=== PATIENT | male | born 1945 | race Two or more races ===

== ENCOUNTER 2020-11-02 07:23 | Emergency (ER) | payer OTHER ==
[~2020-11-02] VITALS: Ht 172.7 cm; Wt 90.7 kg
[2020-11-02] MEDS ORDERED: SODIUM CHLORIDE 0.9% 500 ML IV ONE (08:15)
[2020-11-02 08:34] LABS: Urine Bacteria NONE SEEN /hpf (None Seen); Urine Blood TRACE /uL (Negative); Urine Mucus FEW (None Seen); Urine Specific Gravity 1.019 (1.001-1.035); Urine WBC 250 /hpf (0 - 3); Urine WBC Clumps PRESENT /hpf (None Seen)
[2020-11-02 08:40] LABS: Basophils # (auto) 0.1 10 ^3/uL (0-0.2); Basophils % (auto) 0.3 % (0.0-2.0); Eosinophils # (auto) 0 10 ^3/uL (0-0.8); Hematocrit 43.1 % (41.0-53.0); Hemoglobin 14.8 g/dL (13.5-17.5); Lymphocytes # (auto) 1.3 10 ^3/uL (0.4-5.4); Lymphocytes % (auto) 8.1 % (10.0-50.0); Mean Corpuscular Hemoglobin 30.4 pg (28.0-32.0); Mean Corpuscular Hgb Conc. 34.3 g/dL (32.0-36.0); Mean Corpuscular Volume 88.5 fL (80.0-100.0); Monocytes % (auto) 6.5 % (0.0-12.0); Neutrophils # (auto) 13.2 10 ^3/uL (1.6-8.6); Neutrophils % (auto) 85.1 % (37.0-80.0); Red Blood Cells 4.87 10^6/uL (4.5-5.90); Red Cell Distribution Width 14.7 % (11.8-14.3); White Blood Cell 15.5 10^3/uL (4.4-10.8)
[2020-11-02] MEDS ORDERED: cefTRIAXone 1GM/50ML D5W 50 ML IV ONE (09:00)
[2020-11-02 09:01] LABS: Albumin 3.7 g/dL (3.4-5.0); Calcium 8.3 mg/dL (8.5-10.1); Potassium 3.4 mmol/L (3.5-5.1)
[2020-11-02 09:07] LABS: BUN/Creatinine Ratio 12.7; Bilirubin, Total 2.2 mg/dL (0.2-1.0); Total Protein 7.9 g/dL (6.4-8.2)
[2020-11-02] MEDS ORDERED: KETOROLAC TROMETH 30 MG/ML 1ML VIAL IV ONE (09:30)
[2020-11-02 09:33] VITALS: BP 116/74
== END 2020-11-02 09:59 | disposition home or self-care (01) ==
LOC: ER 07:23
DX: N39.0 Urinary tract infection, site not specified (principal); N20.0 Calculus of kidney
CPT/HCPCS: 36415; 74176; 80053; 81001; 85025; 87086; 96365; 96375; 99284; J0696; J1885; J7030

== ENCOUNTER 2021-03-31 14:42 | Inpatient (IN) | payer OTHER ==
[~2021-03-31] VITALS: Ht 167.6 cm; Wt 90.0 kg
[2021-03-31 15:59] LABS: Basophils # (auto) 0 10 ^3/uL (0-0.2); Basophils % (auto) 0.4 % (0.0-2.0); Eosinophils # (auto) 0.1 10 ^3/uL (0-0.8); Eosinophils % (auto) 1.1 % (0.0-7.0); Hematocrit 44.5 % (41.0-53.0); Hemoglobin 15.4 g/dL (13.5-17.5); Lymphocytes # (auto) 1.2 10 ^3/uL (0.4-5.4); Lymphocytes % (auto) 19.1 % (10.0-50.0); Mean Corpuscular Hemoglobin 30.4 pg (28.0-32.0); Mean Corpuscular Hgb Conc. 34.7 g/dL (32.0-36.0); Mean Corpuscular Volume 87.7 fL (80.0-100.0); Monocytes # (auto) 0.3 10 ^3/uL (0-1.3); Monocytes % (auto) 4.6 % (0.0-12.0); Neutrophils # (auto) 4.8 10 ^3/uL (1.6-8.6); Neutrophils % (auto) 74.8 % (37.0-80.0); Nucleated Red Blood Cells % 0.2 %; Red Blood Cells 5.07 10^6/uL (4.5-5.90); Red Cell Distribution Width 14.3 % (11.8-14.3); White Blood Cell 6.4 10^3/uL (4.4-10.8)
[2021-03-31 16:24] LABS: Calcium 8.7 mg/dL (8.5-10.1); Potassium 3.9 mmol/L (3.5-5.1)
[2021-03-31 16:28] LABS: BUN/Creatinine Ratio 14.1; Bilirubin, Total 0.8 mg/dL (0.2-1.0)
[2021-03-31] MEDS ORDERED: ASPirin 81 mg TAB PO ONE (18:45)
[2021-03-31] MEDS ORDERED: ASPirin 325 MG TAB PO ONE (18:45)
[2021-03-31] MEDS ORDERED: hydrALAZINE HCL 20 MG/ML VL IV PRN (21:45)
[2021-03-31] MEDS ORDERED: ACETAMINOPHEN 325 MG TAB PO PRN (21:45)
[2021-03-31] MEDS ORDERED: HYDROcodone-ACET 5/325MG TAB PO PRN (21:45)
[2021-03-31] MEDS ORDERED: DEXTROSE (50%) 50ML SYRG IV PRN (21:45)
[2021-03-31] MEDS ORDERED: DOCUSATE SOD 100 MG CAP PO PRN (21:45)
[2021-03-31] MEDS ORDERED: ONDANSETRON HCL 4 MG/2 ML VIAL IV PRN (21:45)
[2021-03-31] MEDS ORDERED: ATORVASTATIN 20 MG TAB PO SCH (22:00)
[2021-03-31] MEDS: InsuLIN REG 1unit/0.01ml Soln (100units/ml) SC SCH (22:30)
[2021-03-31] MEDS: ACCU-CHEK COMFORT CURVE STRIP VI SCH (22:30)
[2021-03-31] MEDS ORDERED: MORPHINE SULFATE INJECTION 2 MG/ML SYRG IV PRN (23:00)
[2021-03-31] MEDS ORDERED: NITROGLYCERIN 0.4 MG SL TAB SL PRN (23:00)
[2021-04-01] VITALS (10 sets, daily range): BP systolic 116–157; BP diastolic 74–103
[2021-04-01] MEDS ORDERED: METOPROLOL TARTRATE 1MG/1ML-5ML VIAL IV ONE ×2 (02:30→02:31)
[2021-04-01] MEDS ORDERED: METOPROLOL TARTRATE 1MG/1ML-5ML VIAL IV PRN (02:30)
[2021-04-01] MEDS ORDERED: LISI40TA11 PO (02:54)
[2021-04-01 05:28] LABS: Basophils # (auto) 0 10 ^3/uL (0-0.2); Basophils % (auto) 0.2 % (0.0-2.0); Eosinophils # (auto) 0 10 ^3/uL (0-0.8); Hematocrit 45.7 % (41.0-53.0); Hemoglobin 15.9 g/dL (13.5-17.5); Lymphocytes # (auto) 0.7 10 ^3/uL (0.4-5.4); Lymphocytes % (auto) 4.9 % (10.0-50.0); Mean Corpuscular Hemoglobin 30.3 pg (28.0-32.0); Mean Corpuscular Hgb Conc. 34.9 g/dL (32.0-36.0); Mean Corpuscular Volume 86.9 fL (80.0-100.0); Monocytes # (auto) 0.4 10 ^3/uL (0-1.3); Monocytes % (auto) 2.6 % (0.0-12.0); Neutrophils # (auto) 13.2 10 ^3/uL (1.6-8.6); Neutrophils % (auto) 92.3 % (37.0-80.0); Red Blood Cells 5.26 10^6/uL (4.5-5.90); Red Cell Distribution Width 14.3 % (11.8-14.3); White Blood Cell 14.3 10^3/uL (4.4-10.8)
[2021-04-01 05:48] LABS: Albumin 4.3 g/dL (3.4-5.0); Potassium 3.7 mmol/L (3.5-5.1)
[2021-04-01 05:52] LABS: BUN/Creatinine Ratio 8.4; Total Protein 8.1 g/dL (6.4-8.2)
[2021-04-01] MEDS: ACCU-CHEK COMFORT CURVE STRIP VI SCH ×4 (05:54→21:57)
[2021-04-01] MEDS: InsuLIN REG 1unit/0.01ml Soln (100units/ml) SC SCH ×4 (06:33→21:52)
[2021-04-01] MEDS ORDERED: hydrALAZINE HCL 20 MG/ML VL IV PRN (09:30)
[2021-04-01] MEDS ORDERED: LABETALOL HCL 5 MG/ML 4ML SYRINGE IV PRN (09:30)
[2021-04-01 09:54] LABS: Cholesterol 170 mg/dL (< 200); HDL Cholesterol 50 mg/dL (40-59); LDL Cholesterol 100 mg/dL (< 100); Triglycerides 76 mg/dL (< 150)
[2021-04-01] MEDS ORDERED: ASPirin 81 mg TAB PO SCH (10:00)
[2021-04-01] MEDS: LISINOPRIL 20 MG TAB PO SCH (10:00)
[2021-04-01] MEDS ORDERED: FAMOTIDINE (10MG/ML) 2ML VL IV SCH (10:00)
[2021-04-01] MEDS: D5W/SOD CHLO 0.9% 1,000 ML IV SCH (10:45)
[2021-04-01] MEDS: ATORVASTATIN 20 MG TAB PO SCH (21:57)
[2021-04-02] VITALS (19 sets, daily range): BP systolic 70–147; BP diastolic 34–98
[2021-04-02 05:45] LABS: Basophils # (auto) 0 10 ^3/uL (0-0.2); Eosinophils # (auto) 0 10 ^3/uL (0-0.8); Hematocrit 47.1 % (41.0-53.0); Hemoglobin 16.1 g/dL (13.5-17.5); Lymphocytes # (auto) 1.1 10 ^3/uL (0.4-5.4); Mean Corpuscular Hgb Conc. 34.2 g/dL (32.0-36.0); Mean Corpuscular Volume 87.6 fL (80.0-100.0); Monocytes # (auto) 0.9 10 ^3/uL (0-1.3); Monocytes % (auto) 5.5 % (0.0-12.0); Neutrophils # (auto) 13.6 10 ^3/uL (1.6-8.6); Neutrophils % (auto) 87.5 % (37.0-80.0); Nucleated Red Blood Cells % 0.3 %; Red Blood Cells 5.38 10^6/uL (4.5-5.90); Red Cell Distribution Width 14.7 % (11.8-14.3); White Blood Cell 15.5 10^3/uL (4.4-10.8)
[2021-04-02 06:00] LABS: INR 1.05 (0.9-1.15); Partial Thromboplastin Time 27.3 sec (23.6-33.0)
[2021-04-02 06:05] LABS: BUN/Creatinine Ratio 21.1; Potassium 3.6 mmol/L (3.5-5.1)
[2021-04-02] MEDS: ACCU-CHEK COMFORT CURVE STRIP VI SCH ×4 (06:42→22:00)
[2021-04-02] MEDS: D5W/SOD CHLO 0.9% 1,000 ML IV SCH (06:42)
[2021-04-02] MEDS: InsuLIN REG 1unit/0.01ml Soln (100units/ml) SC SCH ×4 (06:43→22:00)
[2021-04-02] MEDS: LISINOPRIL 20 MG TAB PO SCH (10:00)
[2021-04-02] MEDS ORDERED: IOHEXOL 350 MG/ML 100ML IJ ONE (11:33)
[2021-04-02] MEDS ORDERED: DIGOXIN (250MCG/ML) 2 ML AMPULE IV ONE ×3 (14:30→15:15)
[2021-04-02] MEDS ORDERED: ROCURONIUM 10MG/ML 10ML VIAL IV ONE (14:43)
[2021-04-02] MEDS ORDERED: ETOMIDATE (2MG/ML) 20ML VIAL IV ONE ×2 (14:43→15:30)
[2021-04-02] MEDS ORDERED: SUCCINYLCHOLINE CHLORIDE 20 MG/ML 10ML VIAL IV ONE ×2 (14:43→15:30)
[2021-04-02] MEDS ORDERED: MIDAZOLAM DRIP 50 mg/50mL 50 ML IV ONE ×2 (14:47→16:01)
[2021-04-02] MEDS ORDERED: DIGOXIN (250MCG/ML) 2 ML AMPULE ONE (15:14)
[2021-04-02] MEDS ORDERED: PROPOFOL 100 ML IV ONE (15:22)
[2021-04-02] MEDS ORDERED: MANNITOL 20% SOLN 100 gm/500ml 500 ML IV ONE (15:30)
[2021-04-02] MEDS ORDERED: MIDAZOLAM DRIP 50 mg/50mL 50 ML IV SCH (16:30)
[2021-04-02] MEDS ORDERED: PROPOFOL 100 ML IV SCH (16:30)
[2021-04-02] MEDS ORDERED: fentaNYL Drip 2500mCg/250mlNS 250 ML IV SCH (16:30)
[2021-04-02] MEDS ORDERED: AMIODARONE 450mg/250ml AE 250 ML IV SCH (17:00)
[2021-04-02] MEDS ORDERED: NOREPINEPHRINE 8 MG/250ML KIT 250 ML IV ONE (17:15)
[2021-04-02] MEDS ORDERED: NOREPINEPHRINE 8 MG/250ML KIT 250 ML IV SCH (17:30)
[2021-04-02] MEDS: ATORVASTATIN 20 MG TAB PO SCH (22:00)
== END 2021-04-02 23:52 | disposition short-term general hospital (02) | DRG 44 ==
LOC: ER 14:42 → TELE 22:52 → TELE-CENTR 23:43 → ICU WEST 04-02 16:47
PROVIDERS: ADMIT Nurse Practitioner Family; ATTEND Internal Medicine
PROC: 5A1935Z Respiratory Ventilation, Less than 24 Consecutive Hours (ICD-10-PCS; principal; 2021-04-02)
PROC: 0BH17EZ Insertion of Endotracheal Airway into Trachea, Via Natural or Artificial Opening (ICD-10-PCS; 2021-04-02)
PROC: 06HN33Z Insertion of Infusion Device into Left Femoral Vein, Percutaneous Approach (ICD-10-PCS; 2021-04-02)
DX: I62.9 Nontraumatic intracranial hemorrhage, unspecified (principal); G81.91 Hemiplegia, unspecified affecting right dominant side; E11.65 Type 2 diabetes mellitus with hyperglycemia; G81.94 Hemiplegia, unspecified affecting left nondominant side; I10 Essential (primary) hypertension; E66.9 Obesity, unspecified; I51.7 Cardiomegaly; Z20.822 Contact with and (suspected) exposure to COVID-19; Z86.73 Personal history of transient ischemic attack (TIA), and cerebral infarction without residual deficits; Z68.31 Body mass index [BMI] 31.0-31.9, adult
CPT/HCPCS: 36415; 36600; 70450; 70496; 70498; 70551; 71045; 80048; 80053; 80061; 82306; 82805; 82962; 83036; 84443; 84484; 85025; 85610; 85730; 87070; 87077; 87081; 87186; 87205; 87426; 93005; 93306; 96374; 96375; G0378; J0330; J1815; J2250; J2405; J2704; J3490; J7042